=== PATIENT | female | born 1940 | race Caucasian/White ===

== ENCOUNTER 2021-09-29 19:57 | Observation (INO) ==
[2021-09-29] MEDS ORDERED: Isovue-370 500 ML BOTTLE IVP ONE (20:51)
[2021-09-29] MEDS ORDERED: Morphine Sulfate 2 MG/ML SYRINGE IVP ONE ×2 (20:53→23:53)
[2021-09-29 21:13] LABS: Basophils % 0.3 %; Eosinophils # 0.2 K/mcL (0.0-0.6); Eosinophils % 2.6 %; Hematocrit 39.3 % (35.3-44.9); Hemoglobin 13.4 g/dL (11.5-15.4); Immature Granulocytes % 0.5 % (0-4); Lymphocytes # 1.3 K/mcL (0.6-4.6); Lymphocytes % 15.3 %; Mean Corpuscular HGB Conc 34.1 g/dL (31.6-35.5); Mean Corpuscular Hemoglobin 27.6 pg (28.0-33.3); Mean Corpuscular Volume 80.9 fL (83.0-100.0); Mean Platelet Volume 9.8 fL (9.4-12.4); Monocytes # 1.1 K/mcL (0.0-1.3); Monocytes % 12.3 %; Neutrophils # 5.9 K/mcL (1.6-8.9); Platelet Count 255 K/mcL (140-400); Red Blood Count 4.86 M/mcL (3.82-4.97); Red Cell Distribution Width 13.1 % (11.5-14.5); White Blood Count 8.6 K/mcL (4.3-11.1)
[2021-09-29 21:21] LABS: INR 1.2; Prothrombin Time 13.3 Seconds (9.4-12.1)
[2021-09-29 21:24] LABS: Activated Partial Thrombo Time 33.5 Seconds (26.0-36.0)
[2021-09-29 21:34] LABS: Alanine Aminotransferase 17 Units/L (7-52); Albumin/Globulin Ratio 1.5 (1.1-2.2); Alkaline Phosphatase 56 Units/L (34-104); Aspartate Amino Transferase 19 Units/L (13-39); BUN/Creatinine Ratio 16 (6-26); Bilirubin,Direct 0.2 mg/dL (0.0-0.2); Bilirubin,Indirect 0.3 mg/dL (0.0-1.0); Bilirubin,Total 0.5 mg/dL (0.3-1.0); Blood Urea Nitrogen 16 mg/dL (8-23); Calcium 9.6 mg/dL (8.6-10.3); Carbon Dioxide 33 mEq/L (23-29); Chloride 89 mEq/L (98-107); Globulin 2.7 g/dL (2.4-3.5); Glucose 129 mg/dL (70-105); Lipase 14 Units/L (11-82); Osmolality,Calculated 275 (280-300); Potassium 2.8 mEq/L (3.5-5.1); Sodium 131 mEq/L (136-145); Total Protein 6.7 g/dL (6.4-8.9); Troponin I < 0.03 ng/mL (< 0.04); eGFR For African Americans > 60 (> 60); eGFR For Non-African Americans 51 (> 60)
[2021-09-30] MEDS ORDERED: 0.9 % Sodium Chloride 500 ML ONE (00:48)
[2021-09-30] MEDS ORDERED: 0.9 % Sodium Chloride 1,000 ML IV ONE (00:51)
[2021-09-30] MEDS ORDERED: Naloxone 0.4 MG/ML INJ IVP PRN (02:16)
[2021-09-30] MEDS ORDERED: Ondansetron 4 MG/2 ML VIAL IVP PRN (02:16)
[2021-09-30] MEDS: Morphine Sulfate 2 MG/ML SYRINGE IVP PRN ×2 (03:52→08:23)
[2021-09-30 05:48] LABS: Basophils % 0.5 %; Eosinophils # 0.3 K/mcL (0.0-0.6); Eosinophils % 3.3 %; Hematocrit 37.7 % (35.3-44.9); Hemoglobin 12.8 g/dL (11.5-15.4); Immature Granulocytes % 0.3 % (0-4); Lymphocytes # 2.3 K/mcL (0.6-4.6); Lymphocytes % 30.3 %; Mean Corpuscular Hemoglobin 28.4 pg (28.0-33.3); Mean Corpuscular Volume 83.6 fL (83.0-100.0); Monocytes # 0.9 K/mcL (0.0-1.3); Monocytes % 11.7 %; Neutrophils # 4.1 K/mcL (1.6-8.9); Platelet Count 249 K/mcL (140-400); Red Blood Count 4.51 M/mcL (3.82-4.97); Red Cell Distribution Width 13.1 % (11.5-14.5); Segmented Neutrophils % 53.9 %; White Blood Count 7.6 K/mcL (4.3-11.1)
[2021-09-30 06:12] LABS: BUN/Creatinine Ratio 14 (6-26); Blood Urea Nitrogen 15 mg/dL (8-23); Calcium 9.2 mg/dL (8.6-10.3); Carbon Dioxide 31 mEq/L (23-29); Chloride 93 mEq/L (98-107); Glucose 129 mg/dL (70-105); Magnesium 1.8 mg/dL (1.6-2.6); Osmolality,Calculated 277 (280-300); Phosphorous 3.6 mg/dL (2.7-4.5); Potassium 3.6 mEq/L (3.5-5.1); Sodium 132 mEq/L (136-145); eGFR For African Americans > 60 (> 60); eGFR For Non-African Americans 50 (> 60)
[2021-09-30] MEDS ORDERED: Perflutren Lipid Microsphere 1.3 ML in 0.9 % Sodium Chloride 8.7 ML IVP PRN (06:22)
[2021-09-30] MEDS ORDERED: *HR* OxyCODONE/APAP 5/325 TABLET PO PRN (10:27)
[2021-09-30] MEDS ORDERED: 0.9 % Sodium Chloride 1,000 ML IVC SCH (11:15)
[2021-09-30] MEDS: Acetaminophen 325 MG TABLET PO PRN (14:01)
[2021-09-30] MEDS: *HR* OxyCODONE/APAP 7.5/325 TABLET PO PRN ×2 (15:54→20:09)
[2021-09-30] MEDS: Melatonin 3 MG TABLET PO PRN (20:10)
[2021-10-01] MEDS: *HR* OxyCODONE/APAP 7.5/325 TABLET PO PRN ×5 (00:12→20:59)
[2021-10-01 07:01] LABS: Calcium 9.5 mg/dL (8.6-10.3); Potassium 4.2 mEq/L (3.5-5.1)
[2021-10-01] MEDS: Acetaminophen 325 MG TABLET PO PRN ×2 (08:04→15:31)
[2021-10-01] MEDS ORDERED: polyethylene glycoL 3350 17 GM POWD.PACK PO ONE (18:22)
[2021-10-01] MEDS: Melatonin 3 MG TABLET PO PRN (20:59)
[2021-10-02 07:39] LABS: BUN/Creatinine Ratio 22 (6-26); Blood Urea Nitrogen 20 mg/dL (8-23); Calcium 9.1 mg/dL (8.6-10.3); Carbon Dioxide 28 mEq/L (23-29); Chloride 100 mEq/L (98-107); Glucose 149 mg/dL (70-105); Osmolality,Calculated 287 (280-300); Potassium 3.6 mEq/L (3.5-5.1); Sodium 136 mEq/L (136-145); eGFR For African Americans > 60 (> 60); eGFR For Non-African Americans 58 (> 60)
[2021-10-02] MEDS ORDERED: PAROXETINE HCL 25 MG PO SCH (09:00)
[2021-10-02 10:51] VITALS: TEMP 98; O2SAT 93
[2021-10-02 10:53] VITALS: BP 126/81; PULSE 84
[2021-10-02] MEDS ORDERED: Benzonatate 100 MG CAPSULE PO ONE (11:34)
== END 2021-10-02 12:05 | disposition home or self-care (01) ==
LOC: 4WAOSI 19:57 → EMEROOARM 19:57 → SUATTDRO 09-30 01:16 → 4WAOSI 09-30 01:17 → 3BNU 09-30 09:55
PROVIDERS: ADMIT Internal Medicine; ATTEND Internal Medicine